=== PATIENT | male | born 1960 | race Caucasian/White ===

== ENCOUNTER 2023-06-01 07:25 | Day surgery (SDC) | payer OTHER, SELFPAY ==
[2023-06-01] VITALS (9 sets, daily range): BP systolic 104–148; BP diastolic 74–94; PULSE 45–67; RESP 10–18; TEMP 36.1–36.5; O2SAT 95–100; BMI 27.6
[2023-06-01] MEDS: Lactated Ringers 1,000 ML 80 ML IV (08:30)
--- NOTE | 2023-06-01 10:00 | DI.RAD_ITS ---
Exam(s) XR RETROGRADE IN OR EXAM: XR RETROGRADE IN OR CLINICAL HISTORY: RIGHT URETERAL STONE. TECHNIQUE: 2D digital imaging was performed. COMPARISON: No exams were available for comparison FINDINGS: Fluoroscopy provided during right sided urologic procedure on placement of ureteral stent. See procedure report for details. IMPRESSION: Radiation exposure index/cumulative dose: kumar Cook= 14.68 mGy DATA REPOSITORY: RADIATION DOSE DELIVERED:
--- NOTE | 2023-06-01 10:00 | W.PM.HP.N ---
Date of service: 06/01/23 Time of Service: 10:00 Assessment and Plan Assessment and plan (1) Calculus of kidney: Status: Chronic Assessment and plan: We will plan to do a cystoscopy, right retrograde pyelogram and ureteroscopy. We may be able to tell if his right distal ureteral stone has passed. As long as there is not too much edema in the right distal ureter, we would then be able to run a flexible ureteroscope up to the kidney and address the nonobstructing stone in the kidney as well. History of Present Illness History of Present Illness Chief Complaint: Ureteral stone Narrative: This is a 63-year-old gentleman who has a past history of kidney stones. He had been treated with ESWL for nonobstructing stone. I am not certain as to his previous stone analysis. He is recently had right-sided renal colic and was evaluated at an outside hospital. His CT demonstrated a stone at the right ureterovesical junction along with a nonobstructing stone up in the right kidney. He has not passed the stone with conservative management. He presents now for stone manipulation. He has intermittent right flank and lower abdominal discomfort. He has not seen any gross hematuria. He has no dysuria. Review of Systems Narrative: No fevers or chills No vision change or dysphasia No diabetes or thyroid dysfunction No shortness of breath, cough or hemoptysis No chest pain or palpitations No nausea, vomiting, hepatitis, ulcers, jaundice No seizures, strokes or peripheral neuropathy No bleeding disorders or anemia No gout PFSH All Active Problems Calculus of kidney (Chronic) Allergic rhinitis (Acute) Hemorrhoids (Acute) Asbestos exposure (Acute) Cadena's neuroma (Acute) Lumbar radiculopathy (Acute) Heart palpitations (Acute) Hematochezia (Acute) Benign positional paroxysmal vertigo involving posterior canal (Acute) Medical History Environmental allergies Asthma Surgical History History of colonoscopy Hx of nasal septoplasty Hx of inguinal hernia surgery H/O lithotripsy Social History Smoking/Tobacco Use Status: Former Tobacco Use Quit Date: 08/10/69 Smoking risk assessment performed?: Yes Alcohol Intake: current Alcohol Intake frequency: a few times a month Alcohol type: beer Drug use: Never Substance use type: does not use Housing: house Do you feel safe at home: Yes Do you feel safe in your relationship?: Yes Meds Allergies and Home Medications Allergies Allergy/AdvReac Type Severity Reaction Status Date / Time codeine Allergy Verified 06/01/23 07:48 Home Medications Medication Instructions Recorded Confirmed Type albuterol sulfate 90 mcg/actuation 2 inh inhalation Q6H PRN 03/11/23 06/01/23 History breath activated powder inhaler (ProAir RespiClick) Exam Const General: cooperative and comfortable Neck Neck: supple Resp Effort & Inspection: normal respiratory effort Auscultation: clear to auscultation bilaterally Cardio Rate: regular rate Rhythm: regular rhythm GI Palpation: soft and no masses Neuro General: patient alert, patient awake and patient oriented x3 Results Last Vital Signs Temp 36.5 C 06/01/23 07:53 Pulse 67 06/01/23 07:53 Resp 16 06/01/23 07:53 BP 148/86 H 06/01/23 07:53 Pulse Ox 97 06/01/23 07:53 Time Spent Time spent with Patient: <40 minutes Time was spent: other
[2023-06-01] MEDS: ceFAZolin 2 GM/50 ML BAG IVPB (10:44)
--- NOTE | 2023-06-01 10:52 | W.ANESPRE ---
General Info Date of Service Date Performed: 06/01/23 Height: 5 ft 10.5 in Weight: 88.5 kg Body Mass Index (BMI): 27.6 Surgical Procedure: Operation Date: 06/01/23 09:40 Proposed Procedure Side Surgeon p Cystoscopy/Right Retrograde pyelogram/Right Ureteroscopy/Stone manipulation/?stent Right Leandro Bay MD Meds Allergies and Home Medications Allergies Allergy/AdvReac Type Severity Reaction Status Date / Time codeine Allergy Verified 06/01/23 07:48 Home Medication Medication Instructions Recorded albuterol sulfate 90 mcg/actuation 2 inh inhalation Q6H PRN 03/11/23 breath activated powder inhaler (ProAir RespiClick) Current Visit Medications: Current Medications Generic Name Dose Route Start Last Admin Trade Name Freq PRN Reason Stop Dose Admin Ringer's Solution 1,000 mls @ 80 mls/hr 06/01/23 06:00 06/01/23 08:30 IV 06/28/23 23:59 80 mls/hr INFUSION MARGOTH Administration Cefazolin Sodium/Dextrose 2 gm in 50 mls @ 100 mls/hr 06/01/23 06:00 Ancef Duplex IVPB 06/28/23 23:59 PREOP MARGOTH IV Miscellaneous Supplies 1 each 06/01/23 06:00 Iv Access IV 06/28/23 23:59 DIRECTED MARGOTH Sodium Chloride 0 ml 06/01/23 06:00 Normal Saline Flush 10 Ml Syr IV 06/28/23 23:59 PRN PRN Sodium Chloride 0 ml 06/01/23 06:00 Normal Saline 10 Ml Vial IJ 06/28/23 23:59 DIRECTED PRN Sterile Water 0 ml 06/01/23 06:00 Water,Injection,Sterile 10 Ml Vial IJ 06/28/23 23:59 DIRECTED PRN PFSH Active Problems Active Problems: Problem Status Onset Code Calculus of kidney N20.0 Allergic rhinitis J30.9 Hemorrhoids K64.9 Asbestos exposure Z77.090 Cadena's neuroma G57.60 Lumbar radiculopathy M54.16 Heart palpitations R00.2 Hematochezia K92.1 Benign positional paroxysmal vertigo involving posterior canal H81.10 Medical History Medical History Environmental allergies Asthma Medical History Comments:: Pt has never had an issue. States his twin brother had something, but can't remember Surgical History Surgical History History of colonoscopy Hx of nasal septoplasty Hx of inguinal hernia surgery H/O lithotripsy Tobacco Smoking/Tobacco Use Status: Former Tobacco Use Alcohol Alcohol Intake: current Alcohol intake frequency: a few times a month Alcohol type: beer Substance Use Substance use: Never Substance use type: does not use Vital Signs and Lab Results Vital Signs Most Recent Vital Signs in EMR: Most Recent Vital Signs Temp Pulse Resp BP Pulse Ox 36.5 C 67 16 148/86 H 97 06/01/23 07:53 06/01/23 07:53 06/01/23 07:53 06/01/23 07:53 06/01/23 07:53 Lab Results Blood Type / Crossmatch: No Data to Display Complete Blood Count: No Data to Display Complete Metabolic Panel: No Data to Display Liver Function Panel: No Data to Display Coagulation Panel: No Data to Display Cardiac Panel: No Data to Display Arterial Blood Gas: No Data to Display Venous Blood Gas: No Data to Display Pancreas Panel: No Data to Display Thyroid Panel: No Data to Display Infectious Disease: No Data to Display Blood Cultures: No Data to Display Toxicology Panel: No Data to Display Anesthesia Assessment and Plan Anesthesia History Personal History: No History of Anesthesia Complications and Other Family History: No Family History of Anesthesia Complications Exercise Tolerance Exercise Tolerance: Metabolic Equivalents>4 Pertinent Negatives Pertinent Negatives: No Symptoms of GERD, No Major Cardiovascular Symptoms or Complaints and No History of CVA/TIA Cardiac & Pulmonary Exam Cardiac Exam: Normal S1/S2 Heart Sounds Pulmonary Exam: Clear Bilateral Breath Sounds Implantable Cardiac Device Does patient have a Pacemaker or an ICD?: No Airway Exam Known Difficult Airway: No Mallampati Class: 2 Mouth Opening: Normal (> 3cm) Thyromental Distance: Greater than 3 cm Neck Range of Motion: Full ROM Neck Circumference: Normal Teeth Condition: Normal Dentition ASA Classification ASA Score: ASA 2 Emergency Case?: No NPO Status NPO Status: NPO Clears >2 hours, Solids >8 hours Anesthesia Plan Resuscitation Status: Full Code Anesthesia Technique: General Anesthesia Airway Planned: Natural Airway Monitors Used: Standard Monitors
[2023-06-01] MEDS: Omnipaque 300 MG/ML 50 ML BTL (10:53)
[2023-06-01] MEDS: Lidocaine 2% Jelly 6 ML SYR (10:53)
--- NOTE | 2023-06-01 11:33 | W.PM.DSUDISC ---
Date of service: 06/01/23 Time of Service: 11:33 Discharge Plan Disposition Condition: Stable Discharge Details Attending Provider: Leandro Bay Primary Care Provider: Randi Espinal Home Meds and New Rx's Prescriptions: New ketorolac 10 mg tablet 10 mg PO TID PRN (Reason: pain) 5 Days Qty: 15 0RF Rx Instructions: may take with tylenol but do not take with ibuprofen or other NSAIDs No Action ProAir RespiClick 90 mcg/actuation aerosol powdr breath activated 2 inh inhalation Q6H PRN Discharge Instructions Additional Instructions: no need to strain urine followup @ 1 week for stent removal - tell my office patient has string on end of stent it is not unusual to see blood in the urine, urinate more frequently or have pain with urination as long as stent is in place followup appt 6 weeks with renal US Activity:: Activity as Tolerated Shower/Bathe:: 24 hours Diet:: As Tolerated DS: Diagnosis Discharge Diagnosis (1) Calculus of kidney: Status: Chronic
--- NOTE | 2023-06-01 11:41 | ROE_ITS ---
Date of service: 06/01/23 Time of Service: 11:41 Operative Note Operative Note DATE OF PROCEDURE: 06/01/23 PRE-OP DIAGNOSIS: Right ureteral stone Right kidney stone POST-OP DIAGNOSIS: same PROCEDURE: cystoscopy, right retrograde pyelogram, right flexible ureteroscopy with holmium laser lithoripsy of right renal stone, extraction of stone fragments, insert right ureteral stent SURGEON: Leandro Bay ANESTHESIA TYPE: General LMA/ETT Refer to Anesthesia Record ESTIMATED BLOOD LOSS: 20 PATHOLOGY: other (stones for chemical analysis) COMPLICATIONS: None Patient's condition: stable Implants: 4.8 [place] by 22 to 30 cm right ureteral stent Indications: This is a 63-year-old gentleman who presented to an outside emergency department with renal colic. He is found to have a right distal ureteral stone as well as a larger nonobstructing right renal stone. His symptoms have stabilized, but he is not certain if he passed the right ureteral stone. He presents for ureteroscopy with stone manipulation. Findings: no ureteral stone right renal stone Procedure Description: The patient was brought to the operating room on 06/01/2023. He was given preoperative IV antibiotics. After successful induction of general anesthesia, he was placed in the dorsal lithotomy position. His genitalia was prepped and draped. 2% Xylocaine jelly was instilled into the urethra to act as a local anesthetic. The 22 [place] cystoscope was passed through the urethra into the bladder. The urethra and bladder were inspected with the 30 degree lens. The pendulous, bulbar and membranous urethra's appeared normal with no strictures. The prostatic urethra showed mild lateral lobe enlargement. The bladder neck was entered and the bladder mucosa was inspected. Both ureteral orifices were visualized. No blood was seen coming from either side. The right ureteral orifice was cannulated with a 5 [place] access catheter and a retrograde pyelogram was obtained by injecting Omnipaque through the access catheter under fluoroscopic guidance. No distal filling defect was seen, but we are able to visualize a filling defect in a midpole calyx on the right. I then passed a guidewire through the lumen of the access catheter and removed t he catheter. A dual-lumen catheter was then placed and a second wire was positioned. We chose one of the wires as a working wire and the other as a safety wire. We passed a ureteral access sheath over the working wire leaving the safety wire in place. I then passed the flexible ureteroscope up the ureter. We found no stones along the course of the ureter but we identified stone in the midpole calyx on the right. The stone was treated with a 272 ?m holmium laser fiber. We used a power setting of 0.8 and a rate of 8. The stone fragmented quite nicely and we are able to grasp each of the stone fragments and remove them. The stone fragments were sent for chemical analysis. At the completion of the procedure, we elected to place a 4.8 [place] variable length stent. We passed the stent over the safety wire and position the stent with the proximal end curled in the renal pelvis and the distal end curled in the bladder. The positioning of the stent was confirmed both fluoroscopically and cystoscopically. The patient tolerated this procedure well with no complications. He was taken to the recovery room in stable condition.
--- NOTE | 2023-06-01 12:40 | W.ANESPOSTOP ---
Postoperative Evaluation Date, Time and Location Date Performed: 06/01/23 Time Performed: 12:24 Patient Location: Day Surgery Unit Vital Signs Most Recent Imported Vital Signs: Most Recent Vital Signs Temp Pulse Resp BP Pulse Ox 36.1 C L 47 L 18 104/74 97 06/01/23 12:18 06/01/23 12:18 06/01/23 12:18 06/01/23 12:18 06/01/23 12:18 Pain Score Most Recent Pain Score: Most Recent Pain Score Pain Level 0 06/01/23 12:18 Assessment Mental Status: Awake (Alert & Oriented to Patient Baseline) Airway and Respiratory Function: Patent airway with normal (patient baseline) respiratory exam Cardiovascular Function: Hemodynamically Stable Hydration Status: Adequately Hydrated Nausea & Vomiting: No Nausea or Vomiting Pain: Pt. Denies Any Pain Peripheral Nerve Block: Patient did not receive a nerve block
[2023-06-01] MEDS: Phenazopyridine 200 MG TAB PO (13:10)
[2023-06-01] MEDS: Ketorolac 10 MG TAB PO (13:30)
[2023-06-05 14:22] LABS: Source: Right Kidney
== END 2023-06-01 14:32 | disposition home or self-care (01) ==
LOC: SUR 07:26
PROVIDERS: PCP Nurse Practitioner Family; Visit Provider Urology
PROC: (CPT 52356; principal; 2023-06-01 09:30)
DX: N20.1 Calculus of ureter (principal)
CPT/HCPCS: 52356; 74420; 82365; J0131; J0690; J2001; J2704; Q9967